=== PATIENT | female | born 1970 | race Caucasian/White ===

== ENCOUNTER 2017-10-03 17:46 | Emergency (ER) | payer MEDICAID ==
[~2017-10-03] VITALS: Ht 152.4 cm; Wt 72.6 kg
[~2017-10-03 17:46] MED LIST: ACET-8386 PO
[2017-10-03 18:13] VITALS: BP 136/94
[2017-10-03] MEDS ORDERED: KETOROLAC 60 MG/2 ML VIAL IM ONE (18:50)
--- NOTE | 2017-10-03 19:01 | NUR ---
PT TRASNFERRED TO CHAIR C
--- NOTE | 2017-10-03 19:03 | NUR ---
PT TO XRAY VIA W/C
--- NOTE | 2017-10-03 19:06 | NUR ---
C/O RT CRAMPING LEG PAIN X 3 DAYS; DENIES INJURY NVD HX; DENIES RX; DENIES
--- NOTE | 2017-10-03 19:34 | NUR ---
PT RETURN FROM US
[2017-10-03 20:47] VITALS: BP 120/75
--- NOTE | 2017-10-03 20:47 | NUR ---
Patient discharged with v/s stable. Written and verbal after care instructions given and explained. Patient alert, oriented and verbalized understanding of instructions. Ambulatory ON CRUTCHES with steady gait. All questions addressed prior to discharge. ID band removed. Patient advised to follow up with PMD. Rx of NAPROSYN given. Patient educated on indication of medication including possible reaction and side effects. Opportunity to ask questions provided and answered.
== END 2017-10-03 20:47 | disposition home or self-care (01) ==
LOC: MED 17:46
DX: M79.661 Pain in right lower leg (principal)
CPT/HCPCS: 29505; 73562; 93971; 96372; 99284; J1885; Q0092

== ENCOUNTER 2018-07-31 15:20 | Emergency (ER) | payer MEDICAID ==
[~2018-07-31] VITALS: Ht 162.6 cm; Wt 76.8 kg
[2018-07-31 15:32] VITALS: BP 156/79
--- NOTE | 2018-07-31 15:40 | NUR ---
48 YO F BIB FAMILY W/ C/O 01/29 RIGHT UPPER QUAD ABD PAIN X 2 WEEKS. PT HAD GALLBLADDER REMOVED 5 YEARS AGO. PT REPORTS N/V. UNABLE TO EAT BECAUSE OF THE PAIN. PT W/ ABD FIRM, POSSDISTENTION. LAST BM THIS MORNING, NORMAL PER PT. BOWEL SOUNDS HYPOACTIVE. PT IS AOX4 TO PERSON, PLACE, SITUATION, AND TIME. RR ARE EVEN AND UNLABORED. NAD. AWAITING ER MD LOTT. WILL CONTINUE TO MONITOR.
--- NOTE | 2018-07-31 15:45 | NUR ---
ER MD OCHOA BY BEDSIDE EXAMINING PT
[2018-07-31] MEDS ORDERED: MORPHINE SULFATE 4 MG/ML SYR IVP ONE (15:55)
[2018-07-31] MEDS ORDERED: ONDANSETRON 4 MG/2 ML VIAL IVP ONE (15:55)
[2018-07-31 16:08] LABS: BASOPHILS % (AUTO) 0.3 % (0.0-2.0); EOSINOPHILS # (AUTO) 0.1 K/uL (0-0.4); EOSINOPHILS % (AUTO) 0.9 % (0.0-4.0); HEMATOCRIT 39.7 % (36-48); LYMPHOCYTES # (AUTO) 1.4 K/uL (2.5-16.5); LYMPHOCYTES % (AUTO) 20.8 % (20.5-51.1); MEAN CORPUSCULAR HEMOGLOBIN 29 pg (27-31); MEAN CORPUSCULAR HGB CONC 33 g/dL (33-37); MEAN CORPUSCULAR VOLUME 89.6 fL (80-94); MONOCYTES # (AUTO) 0.7 K/uL (0.8-1.0); MONOCYTES % (AUTO) 9.6 % (1.7-9.3); NEUTROPHILS # (AUTO) 4.7 K/uL (1.8-7.7); NEUTROPHILS % (AUTO) 68.4 % (42.2-75.2); PLATELET COUNT (AUTO) 182 K/uL (140-450); RED BLOOD CELL COUNT(AUTO) 4.44 MIL/uL (4.20-5.40); RED CELL DISTRIBUTION WIDTH 12.9 % (11.6-13.7); WHITE BLOOD COUNT (AUTO) 6.9 K/uL (4.8-10.8)
[2018-07-31 16:20] LABS: APPEARANCE,URINE CLEAR (CLEAR); COLOR,URINE STRAW (YELLOW)
--- NOTE | 2018-07-31 16:22 | NUR ---
PT TO CT VIA AMY ACCOMPANIED BY PIPE CHIPPER
--- NOTE | 2018-07-31 16:30 | NUR ---
PT TO CT VIA RAMON BY [facility].
[2018-07-31 16:32] LABS: ANION GAP 12.4 (8-16); CARBON DIOXIDE 27.3 mmol/L (21-32); CREATININE 0.8 mg/dL (0.6-1.3); POTASSIUM 3.7 mmol/L (3.5-5.1); TOTAL BILIRUBIN 0.3 mg/dL (0.0-1.0)
[2018-07-31 16:33] LABS: ALBUMIN 3.7 g/dL (3.4-5.0)
--- NOTE | 2018-07-31 16:42 | NUR ---
PT BACK IN ROOM FROM CT.
[2018-07-31 17:03] LABS: BILIRUBIN,URINE NEGATIVE (NEGATIVE); BLOOD, URINE NEGATIVE (NEGATIVE); LEUKOCYTE ESTERASE ,URINE NEGATIVE (NEGATIVE); NITRITE, URINE NEGATIVE (NEGATIVE); UGLUCOSE NEGATIVE (NEGATIVE)
--- NOTE | 2018-07-31 17:49 | NUR ---
Patient discharged with v/s stable. Written and verbal after care instructions given and explained. Patient alert, oriented and verbalized understanding of instructions. Ambulatory with steady gait. All questions addressed prior to discharge. ID band removed. Patient advised to follow up with PMD. Rx of Zofran 4mg, Mcintosh #5-325mg, and Pepcid 40mg given. Patient educated on indication of medication including possible reaction and side effects. Opportunity to ask questions provided and answered.
[2018-07-31 17:50] VITALS: BP 138/80
== END 2018-07-31 17:49 | disposition home or self-care (01) ==
LOC: MED 15:20
DX: R10.9 Unspecified abdominal pain (principal); Z79.899 Other long term (current) drug therapy; Z90.49 Acquired absence of other specified parts of digestive tract
CPT/HCPCS: 36415; 74176; 80053; 81003; 81025; 83690; 84703; 85025; 96374; 96375; 99284; J2270; J2405

== ENCOUNTER 2018-09-07 11:04 | Emergency (ER) | payer MEDICAID ==
[~2018-09-07] VITALS: Ht 152.4 cm; Wt 74.8 kg
[2018-09-07 11:09] VITALS: BP 133/78
--- NOTE | 2018-09-07 12:14 | NUR ---
PATIENT TAKEN TO ER BED 4 VIA WHEELCHAIR
--- NOTE | 2018-09-07 13:00 | NUR ---
PT IS A 48 Y/O FEMALE WHO PRESENTS TO THE ED C/O KNEE PAIN. PT STATES THAT IT STARTED HURTING X1 WEEK AGO. NO OBVIOUS TRAUMA/DEFORMITY. UNABLE TO BEAR ANY WEIGHT---DENIES INJURY. PT REPORTS 8/10 ACHING PAIN THAT DOES NOT RADIATE, NOTED SWELLING, NO REDNESS. PT DENIES CP, SOB, N/V/D. PT AWAKE AND ALERT, RR EVEN/UNLABORED. PT REPOSITIONED FOR COMFORT, BED IN LOWEST POSITION. ER MD DR. HERNÁNDEZ NOTIFIED. WILL CONTINUE TO MONITOR. HX--GERD RX---IBUPROFEN
[2018-09-07] MEDS ORDERED: MORPHINE SULFATE 4 MG/ML SYR IM ONE (13:25)
--- NOTE | 2018-09-07 14:09 | NUR ---
PLACED A KNEE IMMOBILIZER ON PT'S RIGHT KNEE, WELL SIZED HER FOR A SET OF CRUTCHES. PT STATED SHE HAS USED CRUTCHES BEFORE.
[2018-09-07 14:13] VITALS: BP 126/79
--- NOTE | 2018-09-07 14:13 | NUR ---
Patient discharged with v/s stable. Written and verbal after care instructions given and explained. Patient alert, oriented and verbalized understanding of instructions. Ambulatory with CRUTCHES to car. All questions addressed prior to discharge. ID band removed. Patient advised to follow up with PMD. Rx of TRAMADOL, MOTRIN given. Patient educated on indication of medication including possible reaction and side effects. Opportunity to ask questions provided and answered.
== END 2018-09-07 14:13 | disposition home or self-care (01) ==
LOC: MED 11:04
DX: S83.91XA Sprain of unspecified site of right knee, initial encounter (principal); K21.9 Gastro-esophageal reflux disease without esophagitis; Z79.899 Other long term (current) drug therapy; X58.XXXA Exposure to other specified factors, initial encounter; Y93.89 Activity, other specified; Y92.89 Other specified places as the place of occurrence of the external cause; Y99.8 Other external cause status
CPT/HCPCS: 29515; 73562; 96372; 99283; J2270; Q0092

== ENCOUNTER 2018-12-13 21:07 | Emergency (ER) | payer MEDICAID ==
[~2018-12-13] VITALS: Ht 157.5 cm; Wt 75.7 kg
[2018-12-13 21:19] VITALS: BP 128/86
--- NOTE | 2018-12-13 21:25 | NUR ---
PT AMBULATED TO THE RESTROOM, GAVE U/A SPECIMEN AND OUT TO LOBBY, VSS
[2018-12-13 22:44] LABS: BASOPHILS % (AUTO) 0.3 % (0.0-2.0); EOSINOPHILS # (AUTO) 0.1 K/uL (0-0.4); EOSINOPHILS % (AUTO) 2.1 % (0.0-4.0); HEMATOCRIT 40.3 % (36-48); HEMOGLOBIN 13.5 g/dL (12.0-16.0); LYMPHOCYTES # (AUTO) 1.9 K/uL (2.5-16.5); LYMPHOCYTES % (AUTO) 35.2 % (20.5-51.1); MEAN CORPUSCULAR HEMOGLOBIN 31 pg (27-31); MEAN CORPUSCULAR HGB CONC 33 g/dL (33-37); MEAN CORPUSCULAR VOLUME 93.4 fL (80-94); MONOCYTES # (AUTO) 0.4 K/uL (0.8-1.0); MONOCYTES % (AUTO) 7.3 % (1.7-9.3); NEUTROPHILS % (AUTO) 55.1 % (42.2-75.2); PLATELET COUNT (AUTO) 168 K/uL (140-450); RED BLOOD CELL COUNT(AUTO) 4.31 MIL/uL (4.20-5.40); WHITE BLOOD COUNT (AUTO) 5.5 K/uL (4.8-10.8)
[2018-12-13 23:02] LABS: BILIRUBIN,URINE NEGATIVE (NEGATIVE); BLOOD, URINE TRACE-L (NEGATIVE); COLOR,URINE YELLOW (YELLOW); LEUKOCYTE ESTERASE ,URINE NEGATIVE (NEGATIVE); NITRITE, URINE NEGATIVE (NEGATIVE); UGLUCOSE NEGATIVE (NEGATIVE)
[2018-12-13 23:05] LABS: ANION GAP 8.9 (8-16); CARBON DIOXIDE 29.7 mmol/L (21-32); CREATININE 0.8 mg/dL (0.6-1.3); POTASSIUM 3.6 mmol/L (3.5-5.1)
[2018-12-13 23:06] LABS: APPEARANCE,URINE SLIGHTLY CLOUDY (CLEAR)
--- NOTE | 2018-12-13 23:06 | NUR ---
PT AMBULATED TO ER BED 6
[2018-12-13 23:11] LABS: ALBUMIN 3.9 g/dL (3.4-5.0); TOTAL BILIRUBIN 0.3 mg/dL (0.0-1.0)
[2018-12-13 23:16] LABS: RBC,URINE 0-5 /HPF (0-5); WBC,URINE 0-5 /HPF (0-5)
--- NOTE | 2018-12-13 23:20 | NUR ---
48 YO F BIB SELF AND DAUGHTER PRESENTS TO ED C/O 03/01 SEVERE EPIGASTRIC PAIN THAT COMES AND GOES AND RADIATES TO MIDDLE BACK ACCOMPANIED BY NV. PT STATES THE PAIN MAKES HER FEEL LIGHT-HEADED WHEN IT IS STRONGEST. SHE ALSO REPORTS THE PAIN OCCURS BEHIND HER SCAR FROM THE CHOLECYSTECTOMY SHE HAD IN 2013. -- ABD IS LARGE, SOFT, TENDER TO TOUCH. BOWEL SOUNDS PRESENT/ACTIVE IN ALL 4 QUADRANTS. -- SKIN PINK, WARM, DRY. BREATHING EVEN, UNLABORED. VSS AT THIS TIME. -- PT APPEARS UNCOMFORTABLE. DRYHEAVING AT BEDSIDE. IS CALM, COOPERATIVE, ANSWERING QUESTIONS APPROPRIATELY, BEHAVIOR APPROPRIATE. PMH-- DENIES RX-- TYLENOL THIS MORNING FOR PAIN Addendum: 12/13/18 at 2356 by Bitnami PT ALSO REPORTS SHE HAS BEEN HAVING DIARRHEA X PAST 3-4 DAYS.
--- NOTE | 2018-12-14 00:42 | NUR ---
US BEDSIDE WITH PT
[2018-12-14] MEDS ORDERED: KETOROLAC 60 MG/2 ML VIAL IM ONE (01:05)
[2018-12-14] MEDS ORDERED: ONDANSETRON 4 MG ODT PO ONE (01:05)
--- NOTE | 2018-12-14 02:23 | NUR ---
DR. LA BEDSIDE EVALUATING PT
[2018-12-14 03:41] VITALS: BP 127/66
--- NOTE | 2018-12-14 03:41 | NUR ---
Patient discharged with v/s stable. Written and verbal after care instructions given and explained. Patient alert, oriented and verbalized understanding of instructions. Ambulatory with steady gait. All questions addressed prior to discharge. ID band removed. Patient advised to follow up with PMD. Rx of MOTRIN, ZOFRAN, AND PRILOSEC WAS given. Patient educated on indication of medication including possible reaction and side effects. Opportunity to ask questions provided and answered.
== END 2018-12-14 03:41 | disposition home or self-care (01) ==
LOC: MED 21:07
DX: R10.13 Epigastric pain (principal); R11.2 Nausea with vomiting, unspecified; R19.7 Diarrhea, unspecified; Z79.891 Long term (current) use of opiate analgesic; Z90.49 Acquired absence of other specified parts of digestive tract; Z98.890 Other specified postprocedural states
CPT/HCPCS: 36415; 76705; 80053; 81001; 81025; 83690; 85025; 96372; 99284; J1885; Q0092; Q0162

== ENCOUNTER 2018-12-22 23:55 | Emergency (ER) | payer MEDICAID ==
[~2018-12-22] VITALS: Ht 165.1 cm; Wt 74.8 kg
[2018-12-23] VITALS: BP 114/76
--- NOTE | 2018-12-23 00:04 | NUR ---
TO LOBBY A/W BED AMBULATORY
--- NOTE | 2018-12-23 00:11 | NUR ---
48/F PRESENTS TO ED WITH FAMILY/FRIEND, C/O EPIGASTRIC AND RUQ PAIN, RADIATING TO BL MID BACK, X1 WEEK. PT REPORTS VOMITING X4 TODAY. DENIES NAUSEA AT THIS TIME. DENIES DYSURIA, CONSTIPATION OR DIARRHEA. AOX4, GCS 15, SKIN NORMAL WARM AND DRY, RR EVEN AND UNLABORED. LUNG SOUNDS CLEAR BL. BS ACTIVE X4, ABD SOFT ROUND TENDER TO RUQ. HX CHOLECYSTECTOMY
--- NOTE | 2018-12-23 00:47 | NUR ---
PT AMBULATED TO BED 7.
--- NOTE | 2018-12-23 00:57 | NUR ---
Dr. Suarez evaluating patient at bedside.
[2018-12-23] MEDS ORDERED: NACL 0.9% 1,000 ML IV ONE (01:08)
[2018-12-23] MEDS ORDERED: MORPHINE SULFATE 4 MG/ML SYR IVP ONE (01:10)
[2018-12-23] MEDS ORDERED: ONDANSETRON 4 MG/2 ML VIAL IVP ONE (01:10)
[2018-12-23 01:29] LABS: BASOPHILS % (AUTO) 0.4 % (0.0-2.0); EOSINOPHILS # (AUTO) 0.1 K/uL (0-0.4); EOSINOPHILS % (AUTO) 1.6 % (0.0-4.0); HEMATOCRIT 36.6 % (36-48); HEMOGLOBIN 12.4 g/dL (12.0-16.0); LYMPHOCYTES # (AUTO) 1.7 K/uL (2.5-16.5); LYMPHOCYTES % (AUTO) 31.5 % (20.5-51.1); MEAN CORPUSCULAR HEMOGLOBIN 32 pg (27-31); MEAN CORPUSCULAR HGB CONC 34 g/dL (33-37); MEAN CORPUSCULAR VOLUME 93.3 fL (80-94); MONOCYTES # (AUTO) 0.5 K/uL (0.8-1.0); MONOCYTES % (AUTO) 9.1 % (1.7-9.3); NEUTROPHILS # (AUTO) 3.1 K/uL (1.8-7.7); NEUTROPHILS % (AUTO) 57.4 % (42.2-75.2); PLATELET COUNT (AUTO) 144 K/uL (140-450); RED BLOOD CELL COUNT(AUTO) 3.92 MIL/uL (4.20-5.40); RED CELL DISTRIBUTION WIDTH 13.8 % (11.6-13.7); WHITE BLOOD COUNT (AUTO) 5.4 K/uL (4.8-10.8)
[2018-12-23 01:32] LABS: APPEARANCE,URINE CLEAR (CLEAR); BILIRUBIN,URINE NEGATIVE (NEGATIVE); BLOOD, URINE NEGATIVE (NEGATIVE); COLOR,URINE YELLOW (YELLOW); LEUKOCYTE ESTERASE ,URINE NEGATIVE (NEGATIVE); NITRITE, URINE NEGATIVE (NEGATIVE); PH,URINE 6.5 (5.0-9.0); UGLUCOSE NEGATIVE (NEGATIVE)
[2018-12-23 01:44] LABS: ANION GAP 11.6 (8-16); CARBON DIOXIDE 26.7 mmol/L (21-32); CREATININE 0.8 mg/dL (0.6-1.3); POTASSIUM 3.3 mmol/L (3.5-5.1)
[2018-12-23 01:50] LABS: ALBUMIN 3.5 g/dL (3.4-5.0); TOTAL BILIRUBIN 0.3 mg/dL (0.0-1.0)
[2018-12-23 04:03] VITALS: BP 125/70
--- NOTE | 2018-12-23 04:04 | NUR ---
Patient discharged with v/s stable. Written and verbal after care instructions given and explained. Patient alert, oriented and verbalized understanding of instructions. Ambulatory with steady gait. All questions addressed prior to discharge. ID band removed. Patient advised to follow up with PMD. Rx of MYLANTA given. Patient educated on indication of medication including possible reaction and side effects. Opportunity to ask questions provided and answered.
== END 2018-12-23 04:04 | disposition home or self-care (01) ==
LOC: MED 23:55
DX: R10.11 Right upper quadrant pain (principal); R11.10 Vomiting, unspecified; Z90.49 Acquired absence of other specified parts of digestive tract; Z79.891 Long term (current) use of opiate analgesic
CPT/HCPCS: 36415; 80053; 81003; 81025; 83690; 85025; 93005; 96361; 96374; 96375; 99284; J2270; J2405; J7030; 81002

== ENCOUNTER 2021-03-23 22:30 | Emergency (ER) | payer MEDICAID ==
[~2021-03-23] VITALS: Ht 149.9 cm; Wt 81.6 kg
[2021-03-23 22:35] VITALS: BP 134/58
--- NOTE | 2021-03-23 22:35 | NUR ---
TO BED VIA WHEELCHAIR
--- NOTE | 2021-03-23 22:40 | NUR ---
PT. IS A 50 Y/O FEMALE THAT CAME INTO ED WITH C/O OF RIGHT SIDED ABDOMINAL PAIN. PT. STATES THAT SHE HAD HER GALLBLADDER REMOVED 5 YEARS AGO AND HAS FLARES UPS SIMILAR TO WHAT SHE IS FEELING AT THIS TIME. WHEN ASKED TO DESCRIBE PAIN, PT. STATES "IT FEELS LIKE NUMBING PAIN." PT. RATES PAIN AT 10/10 ON THE PAIN SCALE. SHE STATES THAT IT RADIATES TO HER RIGHT LOWER BACK. DENIES N/V/D; SKIN IS PINK/WARM/DRY; AAOX4 WITH WHEELCHAIR ASSISTANCE TO BED; HR EVEN AND REGULAR; PT DENIES ANY FEVER, CP, SOB, OR COUGH AT THIS TIME; VSS; PATIENT POSITIONED FOR COMFORT; HOB ELEVATED; BEDRAILS UP X1; BED DOWN. ER MD MADE AWARE OF PT STATUS. PMH: GALLBLADDER REMOVED ALLERGIES: NKA
--- NOTE | 2021-03-23 22:55 | NUR ---
TOBIN RAGLAND AT BEDSIDE FOR MEDICAL EXAMINATION
[2021-03-23] MEDS ORDERED: MORPHINE SULFATE 2 MG/ML SYR IVP ONE (23:05)
[2021-03-23] MEDS ORDERED: ONDANSETRON 4 MG/2 ML VIAL IVP ONE (23:05)
[2021-03-23] MEDS ORDERED: NACL 0.9% 1,000 ML IV SCH (23:05)
[2021-03-23] MEDS ORDERED: PANTOPRAZOLE 40 MG INJ VIAL IVP ONE (23:05)
[2021-03-23 23:44] LABS: BASOPHILS % (AUTO) 0.2 % (0.0-2.0); EOSINOPHILS # (AUTO) 0.1 K/uL (0-0.4); HEMATOCRIT 36.2 % (36-48); HEMOGLOBIN 11.7 g/dL (12.0-16.0); LYMPHOCYTES # (AUTO) 1.4 K/uL (2.5-16.5); LYMPHOCYTES % (AUTO) 15.4 % (20.5-51.1); MEAN CORPUSCULAR HEMOGLOBIN 28 pg (27-31); MEAN CORPUSCULAR HGB CONC 33 g/dL (33-37); MEAN CORPUSCULAR VOLUME 86.2 fL (80-94); MONOCYTES # (AUTO) 0.5 K/uL (0.8-1.0); MONOCYTES % (AUTO) 5.2 % (1.7-9.3); NEUTROPHILS # (AUTO) 6.9 K/uL (1.8-7.7); NEUTROPHILS % (AUTO) 78.2 % (42.2-75.2); PLATELET COUNT (AUTO) 158 K/uL (140-450); RED CELL DISTRIBUTION WIDTH 17.1 % (11.6-13.7); WHITE BLOOD COUNT (AUTO) 8.9 K/uL (4.8-10.8)
[2021-03-24 00:01] LABS: ALBUMIN 3.3 g/dL (3.4-5.0); ANION GAP 11.1 (8-16); CARBON DIOXIDE 26.2 mmol/L (21-32); CREATININE 0.8 mg/dL (0.6-1.3); POTASSIUM 3.3 mmol/L (3.5-5.1); TOTAL BILIRUBIN 0.4 mg/dL (0.0-1.0)
--- NOTE | 2021-03-24 00:45 | NUR ---
URINE SAMPLE COLLECTED AND HANDED TO ANITA FROM LAB
[2021-03-24 01:06] LABS: APPEARANCE,URINE CLEAR (CLEAR); BILIRUBIN,URINE NEGATIVE (NEGATIVE); BLOOD, URINE NEGATIVE (NEGATIVE); COLOR,URINE YELLOW (YELLOW); LEUKOCYTE ESTERASE ,URINE NEGATIVE (NEGATIVE); NITRITE, URINE NEGATIVE (NEGATIVE); PH,URINE 6.5 (5.0-9.0); UGLUCOSE NEGATIVE (NEGATIVE)
--- NOTE | 2021-03-24 02:09 | NUR ---
received report from Ramos LEWIS. pt currently a/o x 4, gcs 15. daughter at bedside. pt is only sinhala speaking. NAD at this time. BRANDYN
[2021-03-24] MEDS ORDERED: CALCIUM CARB 600 MG TAB PO SCH (02:15)
[2021-03-24] MEDS ORDERED: POTASSIUM CHLORIDE 10 MEQ TABER PO ONE ×2 (02:15→02:19)
[2021-03-24] MEDS ORDERED: PANT40EC PO (02:16)
[2021-03-24 02:35] VITALS: BP 116/94
--- NOTE | 2021-03-24 02:35 | NUR ---
Patient discharged with v/s stable. Written and verbal after care instructions given and explained. Patient alert, oriented and verbalized understanding of instructions. Ambulatory with steady gait. All questions addressed prior to discharge. ID band removed. Patient advised to follow up with PMD. Rx of PROTONIX given. Patient educated on indication of medication including possible reaction and side effects. Opportunity to ask questions provided and answered.
== END 2021-03-24 02:35 | disposition home or self-care (01) ==
LOC: MED 22:30
DX: R10.11 Right upper quadrant pain (principal); E87.6 Hypokalemia; Z79.899 Other long term (current) drug therapy; Z98.890 Other specified postprocedural states
CPT/HCPCS: 36415; 74176; 80053; 81003; 83605; 83690; 84484; 84702; 85025; 93005; 96361; 96374; 96375; 99285; C9113; J2270; J2405; J7030

== ENCOUNTER 2022-10-30 08:10 | Day surgery (SDC) | payer OTHER ==
[~2022-10-30] VITALS: Ht 154.9 cm; Wt 71.2 kg
[~2022-10-30 08:10] MED LIST changes: -ACET-8386 PO; +ACET-8905 PO; +PANT40EC PO
[2022-10-30] MEDS ORDERED: LIDOCAINE 2% 1000 MG/50 ML VIAL INJ ONE (08:13)
[2022-10-30 08:37] LABS: BASOPHILS # (AUTO) 0.1 K/uL (0.00-0.22); BASOPHILS % (AUTO) 0.9 % (0.0-2.0); EOSINOPHILS # (AUTO) 0.1 K/uL (0-0.4); EOSINOPHILS % (AUTO) 1.3 % (0.0-4.0); HEMATOCRIT 40.9 % (36-48); HEMOGLOBIN 13.5 g/dL (12.0-16.0); LYMPHOCYTES # (AUTO) 1.6 K/uL (2.5-16.5); LYMPHOCYTES % (AUTO) 26.6 % (20.5-51.1); MEAN CORPUSCULAR HEMOGLOBIN 29 pg (27-31); MEAN CORPUSCULAR HGB CONC 33 g/dL (33-37); MONOCYTES # (AUTO) 0.5 K/uL (0.8-1.0); MONOCYTES % (AUTO) 8.5 % (1.7-9.3); NEUTROPHILS # (AUTO) 3.8 K/uL (1.8-7.7); NEUTROPHILS % (AUTO) 62.7 % (42.2-75.2); PLATELET COUNT (AUTO) 176 K/uL (140-450); RED CELL DISTRIBUTION WIDTH 15.4 % (11.6-13.7); WHITE BLOOD COUNT (AUTO) 6.1 K/uL (4.8-10.8)
[2022-10-30 09:12] LABS: PROTHROMBIN TIME 9.7 secs (10.8-13.4)
== END 2022-10-30 12:40 | disposition home or self-care (01) ==
LOC: MDS 08:10 → MMU 08:12 → MDS 12:40
PROVIDERS: ATTEND Internal Medicine Gastroenterology
DX: K75.81 Nonalcoholic steatohepatitis (NASH) (principal); K21.9 Gastro-esophageal reflux disease without esophagitis; Z90.49 Acquired absence of other specified parts of digestive tract; Z79.899 Other long term (current) drug therapy; Z20.822 Contact with and (suspected) exposure to COVID-19
CPT/HCPCS: 36415; 47000; 76942; 85025; 85610; 85730; 87426; J2001; Q0092